=== PATIENT | female | born 1965 | race Two or more races ===

== ENCOUNTER 2019-06-22 11:12 | Emergency (ER) | payer OTHER ==
[2019-06-22 11:46] VITALS: BP 121/79
--- NOTE | 2019-06-22 12:54 | UC ---
Bite Injury/Animal HPI - HPI Summary HPI Summary: 54-year-old woman comes in with a chief complaint of a tick bite. Patient found the tick this morning on her upper abdomen. She removed it with a pair of tweezers. last outside 2 days ago so she thinks it might of been in there for 2 days. Fevers no chills feels well otherwise. - History of Current Complaint Chief Complaint: UCGeneralIllness Stated Complaint: TICK BITE Time Seen by Provider: 06/22/19 12:37 Pain Intensity: 0 - Allergies/Home Medications Allergies/Adverse Reactions: Allergies Allergy/AdvReac Type Severity Reaction Status Date / Time codeine Allergy GI Upset Verified 06/22/19 11:41 PMH/Surg Hx/FS Hx/Imm Hx Previously Healthy: Yes - Surgical History Surgical History: None - Family History Known Family History: Positive: Non-Contributory Family History: NON CONTRIBUTORY - Social History Alcohol Use: None Substance Use Type: None Smoking Status (MU): Never Smoked Tobacco Review of Systems All Other Systems Reviewed And Are Negative: Yes Constitutional: Positive: Negative Skin: Positive: Other - SEE HPI Eyes: Positive: Negative ENT: Positive: Negative Respiratory: Positive: Negative Cardiovascular: Positive: Negative Gastrointestinal: Positive: Negative Motor: Positive: Negative Neurovascular: Positive: Negative Musculoskeletal: Positive: Negative Neurological: Positive: Negative Psychological: Positive: Negative Is Patient Immunocompromised?: No Physical Exam Triage Information Reviewed: Yes Appearance: Well-Appearing, No Pain Distress, Well-Nourished Vital Signs: Initial Vital Signs Temp 98.3 F 06/22/19 11:42 Pulse 70 06/22/19 11:42 Resp 16 06/22/19 11:42 BP 121/79 06/22/19 11:42 Pulse Ox 99 06/22/19 11:42 Vital Signs Reviewed: Yes Eye Exam: Normal Eyes: Positive: Conjunctiva Clear Neck: Positive: Supple Respiratory: Positive: No respiratory distress Musculoskeletal: Positive: Strength Intact, ROM Intact Neurological: Positive: Alert, Muscle Tone Normal Psychological: Positive: Age Appropriate Behavior Skin: Positive: Other - Patient has a 1 cm dark erythematous area on her upper abdomen. No surrounding erythema. No drainage. Bite Injury Course/Dx - Course Course Of Treatment: No bull's-eye rash no symptoms of Lyme disease therefore we'll treat with doxycycline 200 mg by mouth once. I discussed with the patient that if she did get bull's-eye rash or any signs or symptoms of Lyme disease she needed to get reevaluated. - Differential Dx/Diagnosis Provider Diagnosis: Tick bite of abdomen Discharge ED - Sign-Out/Discharge Documenting (check all that apply): Patient Departure All imaging exams completed and their final reports reviewed: No Studies - Discharge Plan Condition: Stable Disposition: HOME Prescriptions: DOXYcycline CAP(*) [DOXYcycline 100MG CAP(*)] 200 mg PO DAILY #2 cap Patient Education Materials: Tick Bite (ED) Referrals: Zoe Quinn MD [Primary Care Provider] - Additional Instructions: FOLLOW UP WITH YOUR DOCTOR IF NOT COMPLETELY IMPROVED. GET RECHECKED SOONER IF YOUR CONDITION WORSENS; BULLS EYE RASH, SYMPTOMS OF LYME DISEASE OR ANY QUESTIONS OR CONCERNS. - Billing Disposition and Condition Condition: STABLE Disposition: Home
== END 2019-06-22 13:26 | disposition home or self-care (01) ==
LOC: UCEAST 11:12
DX: S30.861A Insect bite (nonvenomous) of abdominal wall, initial encounter (principal); Z88.5 Allergy status to narcotic agent; W57.XXXA Bitten or stung by nonvenomous insect and other nonvenomous arthropods, initial encounter; Y92.9 Unspecified place or not applicable
CPT/HCPCS: 99212; G0463